=== PATIENT | female | born 2005 | race Caucasian/White ===

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

== ENCOUNTER 2024-02-21 23:35 | Emergency (ER) | payer SELFPAY ==
[2024-02-22 00:16] VITALS: BP 118/65; PULSE 68; RESP 18; TEMP 36.6; O2SAT 99; BMI 21.3
[2024-02-22 00:37] LABS: Basophils Percent Auto 0.6 % (0-2); Eosinophils Absolute Auto 0.1 X10*3/uL (0.0-0.4); Eosinophils Percent Auto 1.9 % (0-4); Hematocrit 38.1 % (37.0-47.0); Hemoglobin 13.2 g/dl (12.0-16.0); Lymphocytes Absolute Auto 3.3 X10*3/uL (1.2-4.9); MANUAL DIFF FLAG NO; Mean Corpuscular HGB Conc 34.6 g/dl (31.0-35.0); Mean Corpuscular Hemoglobin 30.3 pg (27.0-33.0); Mean Corpuscular Volume 87.4 fL (80.0-98.0); Mean Platelet Volume 9.5 fL (9.4-12.3); Monocytes Absolute Auto 0.4 X10*3/uL (0.1-1.2); Monocytes Percent Auto 5.7 % (2-11); Neutrophils Absolute Auto 2.9 x10*3/uL (2.0-8.3); Neutrophils Percent Auto 42.8 % (45-73); Platelet Count 236 X10*3/uL (160-400); Red Blood Count 4.36 X10*6/uL (4.20-5.50); Red Cell Distribution Width 11.7 % (11.0-16.0); White Blood Count 6.7 X10*3/uL (4.8-10.8)
[2024-02-22 00:38] LABS: Appearance Urine Cloudy; Color Urine Yellow
[2024-02-22 00:39] LABS: Glucose Urine UA Negative (Negative); Leukocyte Esterase Urine Trace (Negative); Nitrite Urine Negative (Negative); PH 5.5 (5.0-9.0); Specific Gravity - Urine 1.025 (1.005-1.025); UMIC TRIGGER UACC YES; Urine Blood Negative (Negative); Urine Ketones Negative (Negative); Urine Protein Negative (Neg-Trace)
[2024-02-22 00:50] LABS: Bacteria Urine 3+ (None Seen); Hyaline Casts Urine 0-2 /LPF (0-2); RBC Urine 0-2 /HPF (0-2); Squamous Epithelial Cell Urine >20 /HPF (0-2); UACC Culture Trigger YES
--- OUTSIDE RECORDS SUMMARY | 2024-02-22 00:53 | XMS_ITS | Continuity of Care Document ---
Author Organization [facility] ter Address [address] [place] [id number] Care Team Providers Care Financial Systems Analyst Name Role Phone Lila STEINER, Albert Primary Care Physician [place] [facility] [place] - 09/10/[address] [id number]- Encounter Diagnosis Migraine(Final) - 09/10/21 Discharge Disposition: A-D/C Home Attending Physician: Francisco VANEGAS, Miriam Irwin Admitting Physician: Francisco VANEGAS, Miriam Irwin Referring Physician: Not on Staff, Referring MD Allergies, Adverse Reactions, Alerts Substance Reaction Severity Status NKA Active Medications cyproheptadine 2 mg/5 ml oral syrup See Instructions, 10 mL By Mouth at bedtime, may increase after 1 week to 5 ml in AM- 10 ml in PM if needed, # 450 mL, 5 Refills, Maintenance Start Date: 08/14/11 Status: Ordered ibuprofen 100 mg/5 mL oral suspension 20 mL = 400 mg, By Mouth, Every 6 hours, PRN pain or fever, # 240 mL, 1 Refills, Maintenance, 11/24/17 5:49:55 Start Date: 11/24/17 Status: Ordered ibuprofen 100 mg/5 ml oral suspension See Instructions, 20 mL By Mouth for headache, # 240 mL, 1 Refills, Maintenance Start Date: 08/14/11 Status: Ordered Problem List Condition Effective Dates Status Health Status Inform ant Migraine with aura(Confirmed) Active Vital Signs Most recent to oldest [Reference Range]: 1 2 3 Oxygen Saturation [94-100 %] 100 % (09/10/21 8:03 PM) 100 % (09/10/21 6:45 PM) 100 % (09/10/21 6:05 PM) Pulse Rate [55-90 bpm] 85 bpm (09/10/21 8:03 PM) 73 bpm (09/10/21 6:45 PM) 97 bpm *H* (09/10/21 6:05 PM) Blood Pressure [71-110/30-71 mm Hg] 107/56mm Hg (09/10/21 8:03 PM) 90/45mm Hg (09/10/21 6:45 PM) 96/66mm Hg (09/10/21 6:05 PM) Respiratory Rate [16-30 br/min] 16 br/min (09/10/21 8:03 PM) 16 br/min (09/10/21 6:45 PM) 16 br/min (09/10/21 6:05 PM) Temperature [96.8-100.4 DegF] 98.3 DegF (09/10/21 6:45 PM) 98.1 DegF (09/10/21 5:19 PM) Mode of Delivery (Oxygen) Room air (09/10/21 8:03 PM) Room air (09/10/21 6:45 PM) Room air (09/10/21 6:05 PM) Blood pressure sites Arm, left (09/10/21 6:45 PM) Arm, right (09/10/21 6:05 PM) Temperature Route Oral (09/10/21 6:45 PM) Oral (09/10/21 5:19 PM)
[2024-02-22 00:55] LABS: Alanine Aminotransferase 8 U/L (0-31); Albumin Level 4.5 g/dL (3.5-5.0); Alkaline Phosphatase 70 U/L (39-117); Anion Gap 11 (12-20); Aspartate Amino Transferase 18 U/L (5-31); Bilirubin Total 0.7 mg/dL (0.0-1.0); Blood Urea Nitrogen 9 mg/dL (9-16); Calcium 9.4 mg/dL (8.4-10.2); Carbon Dioxide 26 mmol/L (22-29); Chloride 106 mmol/L (96-108); Creatinine Clr Calc Pharmacy 103.7; Estimated Glomerular Filt Rate > 60; Glucose Random 142 mg/dL (60-115); Potassium 3.5 mmol/L (3.3-5.1); Sodium 139 mmol/L (135-145); Total Protein 7.4 g/dL (6.5-8.0)
--- NOTE | 2024-02-22 01:10 | ED_ITS ---
HPI - Female Genitourinary General Chief complaint: Urogenital-Female Stated complaint: Possible UTI Time Seen by Provider: 02/22/24 00:58 Source: patient Mode of arrival: ambulatory Limitations: no limitations History of Present Illness ED Provider: Abril Cox PA-C HPI Narrative: 18 yo female presents to the ER for evaluation of left flank pain and burning with urination that started a couple of days ago. She states she started having left lower back pain 3 days ago and then 2 days ago started having pain with urination. She reports burning sensation with urination. She denies any blood in her urine. No nausea, vomiting, abdominal pain, fever, chills. She reports the symptoms are similar to when she had a kidney infection in the past, although they are not as severe this time. She denies any vaginal discharge. She has an IUD and denies chance of . She denies concern for STI. MD elicited complaint: dysuria Pertinent past history: IUD Onset (ago): day(s) Location of symptoms: urethra Severity: moderate Female Urogenital Radiation: Non-Radiating Quality of pain: burning Consistency: intermittent Vaginal discharge: none Vaginal bleeding: none Urinary symptoms: Dysuria, Urgency and Frequency Exacerbating factors: urination Relieving factors: none Associated symptoms: back pain Treatment prior to arrival: none Sexual activity: Yes Patient : No Related Data Previous Rx's ?Medication ?Instructions ?Recorded levofloxacin 500 mg tablet 500 mg PO DAILY #9 tabs 08/02/22 ondansetron 4 mg disintegrating 4 mg PO Q8H PRN nausea and 08/02/22 tablet vomiting #20 tabs nitrofurantoin 100 mg PO BID 7 days #14 caps 08/06/22 monohydrate/macrocrystals 100 mg capsule (Macrobid) cefuroxime axetil 250 mg tablet 250 mg PO BID 7 days #14 tabs 02/22/24 Allergies Allergy/AdvReac Type Severity Reaction Status Date / Time No Known Allergies Allergy Verified 02/22/24 00:19 [No Known Allergies*] Review of Systems 2 Review of Systems: Yes all other systems are reviewed and are negative PMFSH Past Medical History Medical History No pertinent past medical history Social History Social History (Updated 08/02/22 @ 07:22 by SALLIE Chiang Alcohol intake: never Patient Tobacco Use Status: Never used Tobacco Substance Use Type: Marijuana Physical Exam 2 Vital Signs: Vital Signs: Last Vital Signs Temp 97.9 F 02/22/24 00:16 Pulse 68 02/22/24 00:16 Resp 18 02/22/24 00:16 BP 118/65 02/22/24 00:16 Pulse Ox 99 02/22/24 00:16 O2 Del Method Room Air 02/22/24 00:16 BMI result Body Mass Index 21.3 Appearance: Alert. Oriented X3. No acute distress. Head: normocephalic, atraumatic. Eyes: Pupils equal, round and reactive to light. ENT: Pharynx normal. No tonsillar swelling or exudate. Neck: Normal inspection. Neck supple. CVS: Normal heart rate and rhythm. Pulses normal. Respiratory: No respiratory distress. Breath sounds normal. Abdomen: Soft and nontender. +BS x4 positive CVA tenderness on the left Skin: Skin warm and dry. Normal skin color. Normal skin turgor. No rashes. Extremities: No lower extremity edema. No joint swelling. Neuro/psych: Oriented X 3. No motor deficit. No sensory deficit. CN II-XII intact. Normal speech and cognition. Medications Administered Discontinued Medications Generic Name Dose Route Start Last Admin Trade Name Freq PRN Reason Stop Dose Admin Cefuroxime Axetil 250 mg 02/22/24 01:21 02/22/24 01:34 Cefuroxime Axetil 250 Mg Tablet PO 02/22/24 01:22 250 mg ONCE ONE Administration Phenazopyridine HCl 100 mg 02/22/24 01:21 02/22/24 01:33 Phenazopyridine Hcl 100 Mg Tablet PO 02/22/24 01:22 100 mg ONCE ONE Administration Medical Decision Making Medical Decision Making [facility] Narrative: 18-year-old female with a history of pyelonephritis presents the ER for evaluation of left lower back pain and dysuria for the last 2 or 3 days. Vital signs are stable on arrival. Labs are unremarkable, normal WBC. Her urinalysis is consistent with urinary tract infection. Will start her on oral antibiotics and discharge home. Stable for discharge. Differential Diagnosis Differential Diagnoses: The differential diagnosis associated with the presentation includes UTI, pyelonephritis, kidney stone, STI Lab Data [facility] Lab Attestation statement: I reviewed the patient's lab results. 02/22/24 00:27 02/22/24 00:27 Labs: Lab Results 02/22/24 Range/Units 00:27 WBC 6.7 (4.8-10.8) X10*3/uL RBC 4.36 (4.20-5.50) X10*6/uL Hgb 13.2 (12.0-16.0) g/dl Hct 38.1 (37.0-47.0) % MCV 87.4 (80.0-98.0) fL MCH 30.3 (27.0-33.0) pg MCHC 34.6 (31.0-35.0) g/dl RDW 11.7 (11.0-16.0) % Plt Count 236 (160-400) X10*3/uL MPV 9.5 (9.4-12.3) fL Immature Gran % (Auto) 0.0 (0.0-0.4) % Neut % (Auto) 42.8 L (45-73) % Lymph % (Auto) 49.0 H (20-40) % [place] % (Auto) 5.7 (2-11) % Eos % (Auto) 1.9 (0-4) % Baso % (Auto) 0.6 (0-2) % Lymph # (Auto) 3.3 (1.2-4.9) X10*3/uL [place] # (Auto) 0.4 (0.1-1.2) X10*3/uL Eos # (Auto) 0.1 (0.0-0.4) X10*3/uL Baso # (Auto) 0.0 (0.0-0.2) X10*3/uL Abs Immat Gran (auto) 0.00 (0.00-0.03) X10*3/uL Absolute Neuts (auto) 2.9 (2.0-8.3) x10*3/uL Absolute Nucleated RBC 0.000 (0.0-0.012) X10*3/uL Nucleated RBC % (auto) 0.0 (0.0-0.2) /100WBC Sodium 139 (135-145) mmol/L Potassium 3.5 (3.3-5.1) mmol/L Chloride 106 (96-108) mmol/L Carbon Dioxide 26 (22-29) mmol/L Anion Gap 11 L (12-20) BUN 9 (9-16) mg/dL Creatinine 0.81 (0.5-1.4) mg/dL Estim Creat Clear Calc 103.7 Estimated GFR > 60 Random Glucose 142 H (60-115) mg/dL Calcium 9.4 (8.4-10.2) mg/dL Total Bilirubin 0.7 (0.0-1.0) mg/dL AST 18 (5-31) U/L ALT 8 (0-31) U/L Alkaline Phosphatase 70 (39-117) U/L Total Protein 7.4 (6.5-8.0) g/dL Albumin 4.5 (3.5-5.0) g/dL Urine Color Yellow Urine Appearance Cloudy Urine pH 5.5 (5.0-9.0) Ur Specific [place] 1.025 (1.005-1.025) Urine Protein Negative (Neg-Trace) mg/dL Urine Glucose (UA) Negative (Negative) mg/dL Urine Ketones Negative (Negative) mg/dL Urine Blood Negative (Negative) Urine Nitrite Negative (Negative) Ur Leukocyte Esterase Trace H (Negative) Urine RBC 0-2 (0-2) /HPF Urine WBC 6-10 H (0-5) /HPF Ur Squamous Epith Cells >20 (0-2) /HPF Urine Bacteria 3+ (None Seen) Hyaline Casts 0-2 (0-2) /LPF Urine Test NEGATIVE (NEGATIVE) External Record Review External record reviewed: Outpatient record, Prior outpatient labs and Prior outpatient radiology Tests considered The following testing was considered but not selected: Considered CT scan of the abdomen and pelvis however low clinical suspicion for kidney stone Prescription Management I considered prescription management with: Pain Medication and Antibiotic Critical Care Time Critical Care Time Critical Care Time: No Discharge Plan Discharge Clinical Impression: Urinary tract infection Patient Disposition: Home, Self-Care Instructions: Urinary Tract Infection in Women (DC) Additional Instructions: Take the prescribed antibiotics as directed, complete the entire course and do not miss any doses Drink plenty of fluids If you develop new or worsening symptoms call 911 or come back to the ER for further evaluation. Prescriptions: New cefuroxime axetil 250 mg tablet 250 mg PO BID 7 Days Qty: 14 0RF No Action ondansetron 4 mg tablet,disintegrating 4 mg PO Q8H PRN (Reason: nausea and vomiting) Qty: 20 0RF levofloxacin 500 mg tablet 500 mg PO DAILY Qty: 9 0RF Rx Instructions: start on night of 08/02 nitrofurantoin monohyd/m-cryst [Macrobid] 100 mg capsule 100 mg PO BID 7 Days Qty: 14 0RF Rx Instructions: must administer with a meal/food Print Language: [place]
[2024-02-22 01:25] LABS: UPreg QC Valid YES; Urine Pregnancy NEGATIVE (NEGATIVE)
[2024-02-22] MEDS: Phenazopyridine HCL 100 MG TABLET PO (01:33)
[2024-02-22] MEDS: cefuroxime axetiL 250 MG TABLET PO (01:34)
[2024-02-22 01:48] VITALS: BP 121/78; PULSE 58; RESP 16; TEMP 36.4; O2SAT 98
[2024-02-22 02:02] VITALS: BP 121/78; PULSE 58; RESP 16; TEMP 36.4; O2SAT 97
== END 2024-02-22 02:03 | disposition home or self-care (01) ==
PROVIDERS: Physician Assistant; Emergency Provider Emergency Medicine
DX: N39.0 Urinary tract infection, site not specified (principal); R10.9 Unspecified abdominal pain; M54.50 Low back pain, unspecified; R30.9 Painful micturition, unspecified
CPT/HCPCS: 36415; 80053; 81001; 81025; 85025; 87086; 99283; 99284

== ENCOUNTER 2024-10-10 21:55 | Emergency (ER) | payer OTHER, SELFPAY ==
[2024-10-10 22:05] VITALS: BP 138/85; PULSE 71; RESP 18; TEMP 36.7; O2SAT 100
[2024-10-10 22:41] LABS: IDNOW Serial# 58CA691E; Strep A Nucleic Acid Negative (Negative)
[2024-10-10 23:06] LABS: Influenza A PCR NEGATIVE (Negative); Influenza B PCR NEGATIVE (Negative); Resp Syncy Virus RNA Qual PCR NEGATIVE (Negative); SARS COV2 PCR INHOUSE NEGATIVE (Negative)
--- NOTE | 2024-10-11 00:16 | ED.URI ---
HPI - URI/Sore Throat General Chief Complaint: Upper Respiratory Symptoms Stated Complaint: sore throat/painful Time Seen by Provider: 10/10/24 23:51 Source: patient Mode of arrival: ambulatory Limitations: no limitations History of Present Illness ED Provider: JOSE ALBERTO BENITEZ Narrative: 19 yo female with no PMH here with 1 week of sore throat that won't go away. No fevers, no n/v but states it is very sharp to swallow. Able to ROM of the neck. Child has RSV she has no cough. She is able to eat and drink MD elicited complaint: sore throat Onset (ago): day(s) (7) Consistency: intermittent Severity: moderate Able to tolerate fluids by mouth: Yes Exacerbating factors: swallowing Relieving factors: nothing Context: sick contacts Associated symptoms: denies other symptoms Treatments prior to arrival: none Related Data Previous Rx's ?Medication ?Instructions ?Recorded levofloxacin 500 mg tablet 500 mg PO DAILY #9 tabs 08/02/22 ondansetron 4 mg disintegrating 4 mg PO Q8H PRN nausea and 08/02/22 tablet vomiting #20 tabs nitrofurantoin 100 mg PO BID 7 days #14 caps 08/06/22 monohydrate/macrocrystals 100 mg capsule (Macrobid) cefuroxime axetil 250 mg tablet 250 mg PO BID 7 days #14 tabs 02/22/24 amoxicillin 250 mg/5 mL oral 500 mg (10 mL) PO BID 10 days #200 10/11/24 suspension mL Allergies Allergy/AdvReac Type Severity Reaction Status Date / Time No Known Allergies Allergy Verified 10/10/24 22:08 [No Known Allergies*] Review of Systems Review of Systems: Constitutional : No Fever, No Chills, No Fatigue ENT/Mouth : pos sore throat, No Rhinorrhea Eyes: No Eye Pain, No Swelling, No Redness Cardiovascular : No Chest Pain, No SOB, No Dyspnea on Exertion Respiratory : No Cough, No Sputum Gastrointestinal : No Nausea, No Vomiting, No Diarrhea, No abdominal Pain Genitourinary : No Dysuria, No Urinary Frequency, No Hematuria, Musculoskeletal : No joint pain, No Myalgias, No Joint Swelling Skin : No Skin Lesions, No rash Neuro : No Weakness, No Numbness, No Dizziness, positive Headache All other systems reviewed and are negative [facility] Past Medical History Attestation statement: The following information was validated with the patient. Source: old records reviewed Medical History No pertinent past medical history Social History Social History Alcohol intake: never Patient Tobacco Use Status: Never used Tobacco Substance Use Type: Marijuana Advance Directives: No Advance Directives Information Provided: Yes Physical Exam Vital Signs: Vital Signs: Last Vital Signs Temp 97.9 F 10/11/24 00:21 Pulse 73 10/11/24 00:21 Resp 18 10/11/24 00:21 BP 98/62 10/11/24 00:21 Pulse Ox 98 10/11/24 00:21 O2 Del Method Room Air 10/11/24 00:21 BMI result Body Mass Index 20.0 Appearance: Alert. Oriented X3. No acute distress. Eyes: Pupils equal, round and reactive to light. ENT: Pharynx uvula is red and inflammed small clear very trace sac along bottom portion tonsils normal no exudates, no petechia, normal ROM of neck, no airway issues, drooling, no muffled voice Neck: Normal inspection. Neck supple. CVS: Normal heart rate and rhythm. Pulses normal. Respiratory: No respiratory distress. Breath sounds normal. Abdomen: Soft and nontender. Skin: Skin warm and dry. Normal skin color. Normal skin turgor. Extremities: No lower extremity edema. No calf ttp Neuro: Oriented X 3. No motor deficit. No sensory deficit. CN2-12 intact Medications Administered Discontinued Medications Generic Name Dose Route Start Last Admin Trade Name Azeb PRN Reason Stop Dose Admin Amoxicillin 500 mg 10/11/24 00:16 10/11/24 00:30 Amoxicillin 500 Mg Capsule PO 10/11/24 00:17 500 mg ONCE ONE Administration Dexamethasone Sodium Phosphate 10 mg 10/11/24 00:16 10/11/24 00:30 Dexamethasone Sod Phosphate 10 Mg/Ml Vial PO 10/11/24 00:17 10 mg ONCE ONE Administration Medical Decision Making Medical Decision Making [facility] Narrative: 19 yo female with no sig PMH here with sore throat x 1 week at this time her uvula is inflammed and she likely has uvulitis - no airway issues no signs of abscess normal ROM of neck will dose with steroids and start on amoxicillin. Stable for DC home Differential Diagnosis Differential Diagnoses: The differential diagnosis associated with the presentation includes viral syndrome, strep throat, no systemic symptoms to suggest mono no airway issues, no voice changes or drooling doubt KINDERGARTEN TEACHER or abscess Admission/Observation Consideration of admission/observation: Escalation of care including admission/observation considered can be managed as outpatient Lab Data MDM Lab Attestation statement: I reviewed the patient's lab results. Labs: Lab Results 10/10/24 Range/Units 22:27 Influenza Type A (PCR) NEGATIVE (Negative) Influenza Type B (PCR) NEGATIVE (Negative) RSV RNA Qual (PCR) NEGATIVE (Negative) SARS-CoV-2 RNA (RT-PCR) NEGATIVE (Negative) S. pyogenes GrpA AJ Negative (Negative) Independent Historian Clinical information obtained from an independent historian. History obtained from or confirmed by: Other External Record Review External record reviewed: Outpatient record Prescription Management I considered prescription management with: Antibiotic Discharge Plan Discharge Clinical Impression: Uvulitis Patient Disposition: Home, Self-Care Instructions: Uvulitis (ED) Additional Instructions: negative for covid, flu, rsv negative for strep return for worsening symptoms or concerns stay hydrated steroid will last 3 to 5 days take tylenol or motrin for pain Prescriptions: New amoxicillin 250 mg/5 mL suspension for reconstitution 500 mg PO BID 10 Days Qty: 200 0RF No Action ondansetron 4 mg tablet,disintegrating 4 mg PO Q8H PRN (Reason: nausea and vomiting) Qty: 20 0RF levofloxacin 500 mg tablet 500 mg PO DAILY Qty: 9 0RF Rx Instructions: start on night of 11/2 nitrofurantoin monohyd/m-cryst [Macrobid] 100 mg capsule 100 mg PO BID 7 Days Qty: 14 0RF Rx Instructions: must administer with a meal/food cefuroxime axetil 250 mg tablet 250 mg PO BID 7 Days Qty: 14 0RF Print Language: Cambodian
[2024-10-11 00:21] VITALS: BP 98/62; PULSE 73; RESP 18; TEMP 36.6; O2SAT 98
[2024-10-11] MEDS: dexAMETHasone sod phosphate 10 MG/ML VIAL PO (00:30)
[2024-10-11] MEDS: Amoxicillin Oral Susp 4,000 MG/80 ML BOTTLE 500 MG PO (00:40)
[2024-10-11 00:45] VITALS: BP 98/62; PULSE 73; RESP 18; TEMP 36.6; O2SAT 98
== END 2024-10-11 00:46 | disposition home or self-care (01) ==
PROVIDERS: Emergency Provider Emergency Medicine
DX: K12.2 Cellulitis and abscess of mouth (principal); J02.9 Acute pharyngitis, unspecified; Z03.818 Encounter for observation for suspected exposure to other biological agents ruled out
CPT/HCPCS: 0241U; 87651; 99283; J1100

== ENCOUNTER 2025-01-23 10:53 | Outpatient (REF) | payer OTHER, SELFPAY ==
--- OUTSIDE RECORDS SUMMARY | 2025-01-23 11:43 | XMS_ITS | Encounter Summary ---
Author Organization [employer] Address [address] [place] [address] Care Team Providers Care City Recorder Name Role Phone Tang Rich DMD Unavailable [phone] Reason for Visit * Reason Onset Date Comments Chart prep 01/20/2025 Encounter Details Date Type Department Care Team (Late st Contact Info) Description 01/20/2025 Telephone [facility] [address] [place], [place] [phone] Luz Adame MA Chart prep Social History Tobacco Use Types Packs/Day Years Used Date Smoking Tobacco: Never Smokeless Tobacco: Never Housing Stability Answer Date Recorded What is your housing situation today? I have erum will 01/14/[address] you li ve. Do you have problems with any of the following? None of the above 01/14/2025 Food Insecurity Answer Date Recorded Within the past 12 months, y ou worried that your food would run out before you got money to buy more: Never True 01/14/2025 Within the past 12 months,th e food you bought just didn't last and you didn't have enough money to get more: Never True Transportation Answer Date Recorded In the past 12 months, has l ack of transportation kept you from medical appts, meetings, work or from getting things needed for daily living? No 01/14/2025 Utilities Answer Date Recorded In the past 12 months, has t he electric, gas, oil or water company threatened to shut off services in your home? No 01/14/2025 Internet Access Answer Date Recorded Internet Access Q1 Yes 01/14/2025 Internet Access Q2 Not on file 01/14/2025 Comments Unknown Sex and Gender Information Value Date Recorded Sex Assigned at Female 07/03/2024 8:09 AM EDT Legal Sex Female 3:22 PM EDT Gender Identity Female 07/03/2024 8:09 AM EDT Sexual Orientation Choose not to disclose 2023 8:09 AM EDT documented as of this encounter Miscellaneous Notes * Telephone Encounter - Luz Adame MA - 01/20/2025 10:40 AM EDT Chart Prep Labs: done Images: not applicable Referrals: not applicable Vaccines due: yes Screenings: pap smear and STI screening Overdue care gaps: PHQ-9 documented in this encounter Plan of Treatment Upcoming Encounters Date Type Department Care Team (Late st Contact Info) Description 01/26/2025 2:30 PM EDT Office Visit [facility] [address] [place] [address] Paola Espino DMD 01/28/2025 3:00 PM EDT Office Visit [facility] [address] [place] [address] Nelly Godoy 03/09/2025 11:30 AM EDT Telemedicine [facility] MEDICINE [address] [place] [address] Alexandria Shirley MD [address] [place] [address] documented as of this encounter Visit Diagnoses Not on filedocumented in this encounter Care Teams City Recorder Relationship Specialty Start Date End Date Tang Rich DMD [address] [place] [address] Dentist 09/05/24 documented as of this encounter
--- OUTSIDE RECORDS SUMMARY | 2025-01-23 11:43 | XMS_ITS ---
Author Organization [facility] Address [address] [place] [id number] Care Team Providers Care Well Servicing Rig Operator Name Role Phone NALLELY YUNG Unavailable [phone] REASON FOR VISIT pap fu Social History Sex Assigned At : Social History Observation Description Sex Assigned At Female Encounters Encounter Location Date Provider Diagnosis [address] [phone] 07/15/2024 NALLELY YUNG Plan Of Treatment No Information Progress Notes * Kory MUHAMMADDOB:[birth year] (19 yo F)Acc No.[id number]:07/15/2024 Patient:?Karrie MUHAMMADapolinar :2005???Age:19 Y???Sex:Female Address:[address] [place] [address], [id number] Subjective: * Chief Complaints: * ???Pap fu * Medical History:? * Laminating Machine Feeder History:? control:?Liletta intrauterine device, Nexplanon 2018 (increased bleeding).?Last menstrual period:?06/14/2024.?Last pap smear date:?07/04/2024 LSIL, repeat in 1 yr.?Menarche: ?Age of menarche?9 ???Periods:?irregular, scant blood loss.?Sexual activity:?currently sexually active, with men.?Unprotected sex in the last 5 days?:?yes.?Unprotected sex in the past 10 days?:?yes.? * OB History:?Total pregnancies:?0.? * Surgical History:? * Hospitalization/Major Diagno stic Procedure:? * Family History:? Mom with cervical CA. * Medications:? Objective: * Vitals:? * Physical Examination:? Assessment: Plan: * Treatment: * Procedure Codes:? * true * Date:? Generated for Karine newberry/Maddison/eTransmitting on:?01/23/2025 11:43 AM EDT
--- OUTSIDE RECORDS SUMMARY | 2025-01-23 11:43 | XMS_ITS | Encounter Summary ---
Author Organization [employer] Address [address] [place] [address] Care Team Providers Care Sport Shoe Spike Assembler Name Role Phone Tang Rich DMD Unavailable [phone] Encounter Details Date Type Department Care Team (Latest Contact Info) Description 01/23/2025 Travel Social History Tobacco Use Types Packs/Day Years Used Date Smoking Tobacco: Never Smokeless Tobacco: Never Alcohol Use Standard Drinks/Week Comments Not Currently 0 (1 standard drink = 0.6 oz pur e alcohol) Socially 1-2x/y Housing Stability Answer Date Recorded What is [...] t he electric, gas, oil or water [employer] threatened to shut off services in your home? No 01/14/2025 Internet Access Answer Date Recorded Internet Access Q1 Yes 01/14/2025 Internet Access Q2 Not on file 01/14/2025 Comments No Sex and Gender Information Value Date Recorded Sex Assigned at Female 07/03/2024 8:09 AM EDT Legal Sex Female 3:22 PM EDT Gender Identity Female 07/03/2024 8:09 AM EDT Sexual Orientation Choose not to disclose 2023 8:09 AM EDT documented as of this encounter Plan of Treatment Upcoming Encounters Date Type Department Care Team (Late st Contact Info) Description 01/26/2025 2:30 PM EDT Office Visit [facility] [address] [place] [address] Paola Espino DMD 01/28/2025 3:00 PM EDT Office Visit [facility] [address] [place], [place] [phone] Nelly Godoy 03/09/2025 11:30 AM EDT Telemedicine [facility] MED[facility]INE [address] [place], [place] [phone] Alexandria Shirley MD [address] [place] [address] documented as of this encounter Visit Diagnoses Not on filedocumented in this encounter Care Teams Sport Shoe Spike Assembler Relationship Specialty Start Date End Date Tang Rich DMD [address] [place] [address] Dentist 09/05/24 documented as of this encounter
--- OUTSIDE RECORDS SUMMARY | 2025-01-23 11:43 | XMS_ITS | Encounter Summary ---
Author Organization [facility] Address [address] [place] [address] Phone Care Team Providers Care Senior Client Advisor Name Role Phone Neelam Guaman MD Primary Care Provider [phone] Encounter Details Date Type Department Care Team (Late st Contact Info) Description 07/01/2013 Documentation [facility] Family Medicine [address] [place], [place] [phone] Family Medicine, Physician [address] [place], [place] [phone] Social History Tobacco Use Types Packs/Day Years Used Date Smoking Tobacco: Never Assessed Comments Unknown Sex and Gender Information Value Date Recorded Sex Assigned at Not on file Legal Sex Female 5:23 PM EDT Gender Identity Not on file Sexual Orientation Straight 02/16/2021 12 :51 PM EDT documented as of this encounter Plan of Treatment Not on file documented as of this encounter Visit Diagnoses Not on filedocumented in this encounter Care Teams Senior Client Advisor Relationship Specialty Start Date End Date Neelam Guaman MD [address] [place] [address] [place] [address] PCP - General 05/11/17 04/08/24 documented as of this encounter
--- OUTSIDE RECORDS SUMMARY | 2025-01-23 11:43 | XMS_ITS | Patient Health Record ---
Author Organization [facility] Address [address] [place] [phone] Care Team Providers Care Auto Fleet Maintenance Manager Name Role Phone NALLELY YUNG Unavailable [phone] Allergies No Known Allergies Results Component Value Reference Range Notes THINPREP PAP TEST, Cervix Reviewed date:07/16/2024 04:12:17 PM Interpretation:LSIL Performing Lab:[facility], [facility] [employer], [place], [address] Simón Hoffmann DO Notes/Report: THINPREP PAP TEST LSIL NEGATIVE -- THIN PREP PAP TEST -- SEX: F : 2005 AGE: 19 [id number] CLINIC ID: [id number] SS: PHYSICIAN: NALLELY YUNG CNM COLLECTED BY: ____ Low Grade Squamous Intraepithelial Lesion (LSIL) ____ Additional Findings: Endocervical Material Present Specimen Adequacy: Satisfactory for Evaluation Clinical Note: Z12.4 Encounter for screening for malignant neoplasm of ezlmteS25.3 Encounter for screening for infections with a predominantly sexual mode of transmission, LMP 2023 Specimen Source: Cervix Visit Type: Screening Primary screening performed at [facility], [facility] [address], Justin Coronel DO, Equestrian Trainer. CLIA number [id number] Performed by: PARIS Li (ASCP) Reviewed by: Bertin Hoffmann DO (Electronic Signature 07/14/2024 14:17) APTIMA COMBO 2 CT/NG, Cervix Reviewed date:07/15/2024 11:16:09 AM Interpretation:Negative Performing Lab:[facility], [address] [place], [address] Simón Hoffmann DO Notes/Report: GONORRHEA, AMPLIFIED NEGATIVE NEGATIVE CHLAMYDIA, AMPLIFIED NEGATIVE NEGATIVE DNA Test Results SEX: F : 2005 AGE: 19 [id number] CLINIC ID: [id number] SS: PHYSICIAN: NALLELY YUNG CNM COLLECTED BY: [id number] ____ Specimen Source: Cervix Specimen Type: ThinPrep PAP Correlating Pap: [id number] Neisseria gonorrhoeae: NEGATIVE Normal Value: Negative Chlamydia trachomatis: NEGATIVE Normal Value: Negative Reason For Referral No Information Medications Medication SIG (Take, Route, Frequency, Duration) Notes Start Date End Date Status Liletta (52 MG) 18.6 MCG/DAY as directed Intrauterine stat for 2190 days 07/05/2020 Active Levonorgestrel 1.5 MG as directed Orally May take upto 5 days after sex as needed for 1 days 07/04/2024 Active [place] FE 10/20 1-20 MG-MCG 1 tablet Oral ly Once a day for 28 days 07/04/2024 Active Social History Sex Assigned At : Social History Observation Description Sex Assigned At Female Problems Problem Type SNOMED Code ICD Code Onset Dates Problem Status W/U Status Risk Notes Problem Menstrual disorder (781581411) Irregular menses (N92.6) Active confirmed Vital Signs Blood pressure diastolic 82 mm Hg 07/04/2024 Height 67 in 07/04/2024 Blood pressure systolic 108 mm Hg 07/04/2024 Weight 128.9 lbs 07/04/2024 BMI 20.19 kg/m2 07/04/2024 Encounters Encounter Location Date Provider Diagnosis [facility] [address] [place], [place] [phone] 07/04/2024 NALLELY YUNG Encounter for annemarie faizan of intrauterine contraceptive device Z30.432 ; Routine Pap Screening Z12.4 ; Encounter for screening for infections with a predominantly sexual mode of transmission Z11.3 ; Other problems related to lifestyle Z72.89 and Visit for initial script of pills Z30.[address] [id number] 07/15/2024 NALLELY YUNG Assessments Encounter Date Diagnosis (ICD Code) Assessment Notes Treatment Notes Treatment Clinical Notes Section Notes 07/04/2024 Encounter for removal of intrauterine contraceptive device (ICD-10 - Z30.432) Reviewed clt's experience with current IUD. Reviewed option for u/s evaluation- question if mildly malpositioned given change in symptoms. Clt prefers removal today. No CI s to removal. Clt aware of risk for pregrancy with UPI in the last 5 days. Will take plan B to lower risk. Advised to take today. Medication dispensed from in house stock. Consent reviewed and signed. Clt with some cramping with removal but tolerated well. Declined NSAID or vibration at umbilicus for pain managment options. Spent 30 minutes doing the following: Chart Prep Obtaining/revi thomas history Performing medically necessary exam Counseling/Research Dairy Farm Supervisor rdination of Care Documenting the visit Educating the patient Ordering medication/javier t/procedures Established Patient: [id number] 30 Minutes 07/04/2024 Routine Pap Screening (ICD-10 - Z12.4) For first pap today. Rescreening in 3years if normal Spent 30 minutes doing the following: Chart Prep Obtaining/revi thomas history Performing medically necessary exam Counseling/Research Dairy Farm Supervisor rdination of Care Documenting the visit Educating the patient Ordering medication/javier t/procedures Established Patient: [id number] 30 Minutes 07/04/2024 Encounter for screening for infections with a predominantly sexual mode of transmission (ICD-10 - Z11.3) Discussed STI risks, screenings that are available through [employer] and safe sex. Clt aware of lab processing times and how to view results on portal and how positive results will be communicated Spent 30 minutes doing the following: Chart Prep Obtaining/revi thomas history Performing medically necessary exam Counseling/Research Dairy Farm Supervisor rdination of Care Documenting the visit Educating the patient Ordering medication/javier t/procedures Established Patient: [id number] 30 Minutes 07/04/2024 Other problems related to lifestyle (ICD-10 - Z72.89) Spent 30 minutes doing the following: Chart Prep Obtaining/revi thomas history Performing medically necessary exam Counseling/Research Dairy Farm Supervisor rdination of Care Documenting the visit Educating the patient Ordering medication/javier t/procedures Established Patient: [id number] 30 Minutes 07/04/2024 Visit for initial script of pills (ICD-10 - Z30.011) Discussed control options. No CI's to CHCs. Reviewed benefits, risks and ACHES. Clt to notify if migraines worsened by OCP's. May quick start with BUM x 7 days Medication dispensed from in house stock: lot number [id number], exp 2024 x 3 packs. 1 refill left Spent 30 minutes doing the following: Chart Prep Obtaining/revi thomas history Performing medically necessary exam Counseling/Research Dairy Farm Supervisor rdination of Care Documenting the visit Educating the patient Ordering medication/javier t/procedures Established Patient: [id number] 30 Minutes 07/04/2024 Other Spent 30 minutes doing the following: Chart Prep Obtaining/revi thomas history Performing medically necessary exam Counseling/Research Dairy Farm Supervisor rdination of Care Documenting the visit Educating the patient Ordering medication/javier t/procedures Established Patient: [id number] 30 Minutes Plan Of Treatment No Information Insurance Providers Payer Name Payer Address Payer Phone Subscriber Number Group Number Insured Name Patient Relationship to Insured Coverage Start Date Coverage End Date [facility] - [id number] [address] [place] [id number] [place] fee cat 2 Kory Huntley Self - patient is the insured Medical (General) History Medical History History ICD Code Migraines no aura Hospitalization History Reason Date(Month/Year) migraines
--- OUTSIDE RECORDS SUMMARY | 2025-01-23 11:43 | XMS_ITS | Encounter Summary ---
Author Organization [employer] Address [address] [place] [address] Care Team Providers Care Skylights Assembler Name Role Phone Tang Rich DMD Unavailable [phone] Reason for Visit * Reason Onset Date Comments emergency no insurance 12/09/2024 Encounter Details Date Type Department Care Team (Late st Contact Info) Description 12/09/2024 Telephone [facility] [address] [place] [address] Yuriy Barrientos DDS [address] [place], [place] [phone] emergency no insurance Social History Tobacco Use Types Packs/Day Years Used Date Smoking Tobacco: Never Smokeless Tobacco: Never Comments Unknown Sex and Gender Information Value Date Recorded Sex Assigned at Female 07/03/2024 8:09 AM EDT Legal Sex Female 3:22 PM EDT Gender Identity Female 07/03/2024 8:09 AM EDT Sexual Orientation Choose not to disclose 2023 8:09 AM EDT documented as of this encounter Miscellaneous Notes * Telephone Encounter - Jeanine Medrano - 12/09/2024 9:25 AM EDT Patient has been instructed to come in to see insurance on 2nd or 3rd floor and told to be here at the least for 1pm to allow time for assistance. Informed to bring pay stubs or award letter of income and id and after speaking with managed care she can then go to her emergency appt documented in this encounter Plan of Treatment Upcoming Encounters Date Type Department Care Team (Late st Contact Info) Description 01/26/2025 2:30 PM EDT Office Visit [facility] [address] [facility] [place] [address] Paola Espino DMD 01/28/2025 3:00 PM EDT Office Visit [facility] [address] [place] [address] Nelly Godoy 03/09/2025 11:30 AM EDT Telemedicine [facility] MEDICINE [address] [place] [address] Alexandria Shirley MD [address] [place], [place] [phone] documented as of this encounter Visit Diagnoses Not on filedocumented in this encounter Care Teams Skylights Assembler Relationship Specialty Start Date End Date Tang Rich DMD [address] [place] [address] Dentist 09/05/24 documented as of this encounter
--- OUTSIDE RECORDS SUMMARY | 2025-01-23 11:43 | XMS_ITS | Encounter Summary ---
Author Organization [employer] Address [address] [facility] [address] [place] [address] Care Team Providers Care Recharger Name Role Phone Tang Rich DMD Unavailable [phone] Reason for Visit * Reason Onset Date Comments unable to post insurance PAR side 12/11/2024 Encounter Details Date Type Department Care Team (Late st Contact Info) Description 12/11/2024 Telephone [facility] [address] [place] [address] HilarioTang DMD [address] [place], [place] [phone] unable to post insurance PAR side Social History Tobacco Use Types Packs/Day Years [...] * Telephone Encounter - Jeanine Medrano - 12/11/2024 8:50 AM EDT Patient is coming in for 11:30 emergency appt. Unable to post insurance portal not running on PAR side DR documented in this encounter Plan of Treatment Upcoming Encounters Date Type Department Care Team (Late st Contact Info) Description 01/26/2025 2:30 PM EDT Office Visit [facility] [address] [place] [address] Paola Espino DMD 01/28/2025 3:00 PM EDT Office Visit [facility] [address] [place] [address] Nelly Godoy 03/09/2025 11:30 AM EDT Telemedicine [facility] [address], [place] [phone] Alexandria Shirley MD [address] [place] [address] documented as of this encounter Visit Diagnoses Not on filedocumented in this encounter Care Teams Recharger Relationship Specialty Start Date End Date Tang Rich DMD [address] [place] [address] Dentist 09/05/24 documented as of this encounter
--- OUTSIDE RECORDS SUMMARY | 2025-01-23 11:43 | XMS_ITS ---
Author Organization [employer] [facility] Address [address] [place] [id number] Care Team Providers Care Sprinkler Fitter Helper Name Role Phone NALLELY YUNG Unavailable [phone] Allergies No Known Allergies Results Component Value Reference Range Notes THINPREP PAP TEST, Cervix Reviewed date:07/16/2024 04:12:17 PM Interpretation:LSIL Performing Lab:[facility], [address], [place], [address] Simón Hoffmann DO Notes/Report: THINPREP PAP TEST LSIL NEGATIVE -- THIN PREP PAP TEST -- SEX: F : 2005 AGE: 19 [id number] CLINIC ID: [id number] SS: PHYSICIAN: NALLELY YUNG CNM COLLECTED BY: ____ Low Grade Squamous Intraepithelial Lesion (LSIL) ____ Additional Findings: Endocervical Material Present Specimen Adequacy: Satisfactory for Evaluation Clinical Note: Z12.4 Encounter for screening for malignant neoplasm of vniosuR38.3 Encounter for screening for infections with a predominantly sexual mode of transmission, LMP 2023 Specimen Source: Cervix Visit Type: Screening Primary screening performed at [facility] [address] [address], Justin Coronel DO, Rn Family Practice. CLIA number [id number] Performed by: PARIS Li (ASCP) Reviewed by: Bertin Hoffmann DO (Electronic Signature 07/14/2024 14:17) APTIMA COMBO 2 CT/NG, Cervix Reviewed date:07/15/2024 11:16:09 AM Interpretation:Negative Performing Lab:[facility], [address] [place], [address] Simón Hoffmann DO Notes/Report: GONORRHEA, AMPLIFIED NEGATIVE NEGATIVE CHLAMYDIA, AMPLIFIED NEGATIVE NEGATIVE DNA Test Results SEX: F : 2005 AGE: 19 [id number] CLINIC ID: [id number] SS: PHYSICIAN: NALLELY YUNG CNM COLLECTED BY: [id number] ____ Specimen Source: Cervix Specimen Type: ThinPrep PAP Correlating Pap: [id number] Neisseria gonorrhoeae: NEGATIVE Normal Value: Negative Chlamydia trachomatis: NEGATIVE Normal Value: Negative REASON FOR VISIT IUD Out, pap only Medications Medication SIG (Take, Route, Frequency, Duration) Notes Start Date End Date Status Liletta (52 MG) 18.6 MCG/DAY as directed Intrauterine stat for 2190 days 07/05/2020 Active Levonorgestrel 1.5 MG as directed Orally May take upto 5 days after sex as needed for 1 days 07/04/2024 Active [place] FE 10/20 1-20 MG-MCG 1 tablet Oral ly Once a day for 28 days 07/04/2024 Active Social History Sex Assigned At : Social History Observation Description Sex Assigned At Female Vital Signs Blood pressure systolic 108 mm Hg 07/04/20 24 Blood pressure diastolic 82 mm Hg 024 Height 67 in 07/04/2024 Weight 128.9 lbs 07/04/2024 BMI 20.19 kg/m2 07/04/2024 Encounters Encounter Location Date Provider Diagnosis [facility] [address] [place], [place] [phone] 07/04/2024 NALLELY AGA Encounter for annemarie faizan of intrauterine contraceptive device Z30.432 ; Routine Pap Screening Z12.4 ; Encounter for screening for infections with a predominantly sexual mode of transmission Z11.3 ; Other problems related to lifestyle Z72.89 and Visit for initial script of pills Z30.011 Assessments Encounter Date Diagnosis (ICD Code) Assessment [...] Obtaining/revi thomas history Performing medically necessary exam Counseling/Acoustical Material Worker rdination of Care Documenting the visit Educating the patient Ordering medication/javier t/procedures Established Patient: 96650 30 Minutes 07/04/2024 Routine Pap Screening (ICD-10 - Z12.4) For first pap today. Rescreening in 3years if normal Spent 30 minutes doing the following: Chart Prep Obtaining/revi thomas history Performing medically necessary exam Counseling/Acoustical Material Worker rdination of Care Documenting the visit Educating the patient Ordering medication/javier t/procedures Established Patient: 02406 30 Minutes 07/04/2024 Encounter for screening for [...] Obtaining/revi thomas history Performing medically necessary exam Counseling/Acoustical Material Worker rdination of Care Documenting the visit Educating the patient Ordering medication/javier t/procedures Established Patient: 74868 30 Minutes 07/04/2024 Other problems related to lifestyle (ICD-10 - Z72.89) Spent 30 minutes doing the following: Chart Prep Obtaining/revi thomas history Performing medically necessary exam Counseling/Acoustical Material Worker rdination of Care Documenting the visit Educating the patient Ordering medication/javier t/procedures Established Patient: 48173 30 Minutes 07/04/2024 Visit for initial script of pills (ICD-10 - Z30.011) Discussed control options. No CI's to CHCs. Reviewed benefits, risks and ACHES. Clt to notify if migraines worsened by OCP's. May quick start with BUM x 7 days Medication dispensed from in house stock: lot number [id number], exp 2024 x 3 packs. 1 refill left Spent 30 minutes doing the following: Chart Prep Obtaining/revi thomas history Performing medically necessary exam Counseling/Acoustical Material Worker rdination of Care Documenting the visit Educating the patient Ordering medication/javier t/procedures Established Patient: 74344 30 Minutes 07/04/2024 Other Spent 30 minutes doing the following: Chart Prep Obtaining/revi thomas history Performing medically necessary exam Counseling/Acoustical Material Worker rdination of Care Documenting the visit Educating the patient Ordering medication/javier t/procedures Established Patient: 42568 30 Minutes Plan Of Treatment Medication Medication Name Sig Start Date Stop Date Notes Levonorgestrel 1.5 MG as directed Orally May take upto 5 days after sex as needed for 1 days 07/04/2024 [place] FE 10/20 1-20 MG-MCG 1 tablet Oral ly Once a day for 28 days 07/04/2024 Treatment Notes Assessment Notes Encounter for removal of int rauterine contraceptive device Reviewed clt's experience with current IUD. Reviewed [...] vibration at umbilicus for pain managment options. Routine Pap Screening For first pap toda y. Rescreening in 3years if normal Encounter for screening for infections with a predominantly sexual mode of transmission Discussed STI risks, screenings that are available through [facility] and safe sex. Clt aware of lab processing times and how to view results on portal and how positive results will be communicated Visit for initial script of pills Discussed control options. No CI's to CHCs. Reviewed benefits, risks and ACHES. Clt to notify if migraines worsened by OCP's. May quick start with BUM x 7 days Medication dispensed from in house stock: lot number [id number], exp 2024 x 3 packs. 1 refill left Next Appt Details Follow Up: 3 Months, Reason: pill check Procedure Notes * Category Sub-Category Detail Notes IUD Removal Consent Risks and benefi ts discussed. All questions answered. Informed consent signed Procedure Patient was placed i n the dorsal lithotomy position. A speculum was inserted into the vagina. IUD strings grasped with ring forceps and IUD removed easily. The patient tolerated the procedure well. Progress Notes * Kory MUHAMMADDOB:[birth year] (19 yo F)Acc No.[id number]:07/04/2024 Progress Note Patient:?Latosha MUHAMMADmckayla Provider:MARI YUNG :2005???Age:19 Y???Sex:Female D ate:07/04/2024 Address:[address] [place], [place] [id number] Subjective: * Chief Complaints: * ???IUD Out, pap only * HPI: ???Visit Narrative:? Liletta IUD since 2019. Last few years with cramping, BTB and painful sex. Clt notes first year of IUD was fine. Had IUD check in 2022 and was advised u/s for fu- clt had work conflicts with appointment so never had it done. Would like removal today and OCP start. Been on OCP's as adolescent. Has not had pap yet. ?Current form of control:?Liletta.?Presenting Symptoms:?cramping, painful IC, breakthrough bleeding.?LMP:?unsure, occasional spotting.?Last date of UPI:?07/02/2024.?Other Notes for the Clinician:?Clt states she experiences?pain?during penetrative IC w/ the IUD as well as random cramping not related to menses. Client did not take pain medication for removal, offered clt medication and she declined.? * ROS:?General/Constitutional:?Comments?See HPI for details.? * Medical History:? * Servomechanism Designer History:? control:?Liletta intrauterine device, Nexplanon 2018 (increased bleeding).?Last menstrual period:?06/14/2024.?Last pap smear date:?07/04/2024 pap collected.?Menarche: ?Age of menarche?9 ???Periods:?irregular, scant blood loss.?Sexual activity:?currently sexually active, with men.?Unprotected sex in the last 5 days?:?yes.?Unprotected sex in the past 10 days?:?yes.? * OB History:?Total pregnancies:?0.? * Surgical History:?No Surgica l History documented. * Hospitalization/Major Diagno stic Procedure:?migraines * Family History:?No Family Hi story documented..? * Social History:?Food Access:?Food Access?The Client's current access to food is?Secure Food Access ???Housing:?Housing?The client's current living situation is:?stable housing ???Reproductive Life Plan:?Reproductive Life Plan?Do you want to have children??Yes, I want to have children ?How long would you like to wait until you/your partner becomes ??1 - 5 years ?How sure are you that you will be able to use your control method without any problems??Sure ???Sexual History:?Sexual History?Sexual History Reviewed:?Partners, Practices, Protection/Past STIs, Prevention of ?Currently sexually active??Yes ?Sexually active with:?Men ?Number of male partners?1 ?Your sexual activities include:?oral intercourse, vaginal intercourse ?Reviewed types of EC??No ?Do you use condoms??No ?Date of last unprotected intercourse:?07/02/2024 ?Number of partners in past 3 months:?1 ?Number of partners in past year:?1 ?What is the client's primary method to prevent at the end of their visit??Oral - Combined Hormone Pill ?Does your partner(s) currently have any STIs??No ???HIV Risk Assessment:?Additional Questions?Is an HIV Risk Assessment being conducted??No ???PrEP for HIV:?PrEP for HIV?Is the client interested in beginning/continuing PrEP for HIV??No ???Relationships:?Relationships?Has the client experienced any of the following:?Client has never experienced harmful relationships ???Human Trafficking:?Human Trafficking?Experienced:?No ???Tobacco Use:?Tobacco Use?Do you/have you used tobacco??Yes, currently tobacco leaf w/ marijuana ?Tobacco Smoking Status?Current some day smoker ???Drugs/Alcohol:?Drug/Alcohol Use?Do you or have you used drugs??Yes, currently ?By what route are you taking drugs? Please check all that apply:?Smoking ?Which drug(s) do you smoke??Marijuana ?When did you last use?Do you want to quit drugs??No ?Do you or have you used alcohol??No ???Counseling Provided:?Counseling Provided?Please indicate the length of time, in minutes, that counseling was provided.?6 ?Counseling Was Provided By:?kristopher * Medications:?TakingLiletta ( 52 MG) 18.6 MCG/DAY Intrauterine Device as directed Intrauterine stat Taking Liletta (52 MG) 18.6 MCG/DAY Intrauterine Device as directed Intrauterine stat DiscontinuedPlan B One-Step 1.5 MG Tablet 1 tablet Orally At once Plan B One-Step 1.5 MG Tablet 1 tablet Orally At once Tri-Previfem 0.18/0.215/0.25 MG-35 MCG Tablet 1 tablet Orally Once a day Medication List reviewed and reconciled with the patientDiscontinued Plan B One-Step 1.5 MG Tablet 1 tablet Orally At once Discontinued Plan B One-Step 1.5 MG Tablet 1 tablet Orally At once Discontinued Tri-Previfem 0.18/0.215/0.25 MG-35 MCG Tablet 1 tablet Orally Once a day Medication List reviewed and reconciled with the patient * Allergies:?N.K.D.A.no[Allerg ies Verified] Objective: * Vitals:?BP:108/82mm Hg, Ht: 67 in, Wt:128.9lbs, BMI:20.19Index, Ht-cm: 170.18, Wt-k.47. * Examination: ???General Examination: ?GENERAL APPEARANCE:?in no acute distress.?NEUROLOGIC:?alert and oriented.?Gynecological: ?EXTERNAL GENITALIA:?normal.?URETHRAL MEATUS:? normal.?URETHRA:? normal.?VAGINA:? healthy pink mucosa without any lesions.?VAGINA VAULT:? normal.?CERVIX:?normal appearance, IUD strings seen about 3cm long, Pap collected.?ANUS/PERINEUM:? normal.? Assessment: * Assessment: 1.?Encounter for removal of intrauterine contraceptive device - Z30.432 (Primary)???2.?Routine Pap Screening - Z12.4???3.?Encounter for screening for infections with a predominantly sexual mode of transmission - Z11.3???4.?Other problems related to lifestyle - Z72.89???5.?Visit for initial script of pills - Z30.011??? Spent 30 minutes doing the f ollowing: Chart Prep Obtaining/reviewing history Performing medically necessary exam Counseling/Coordination of Care Documenting the visit Educating the patient Ordering medication/test/procedures Established Patient: 69815 30 Minutes Plan: * Treatment: 2.?Routine Pap Screening?LAB: THINPREP PAP TEST, Cervix (Collection Date & Time - 07/04/2024 11:43 AM) ? Value Reference Range ?THINPREP PAP TEST LSIL A NEGAT CHU - * NALLELY YUNG 07/15/2024 11:13: 21 AM EDT > your pap is showing some low grade cell changes that will usually return to normal with time. I recommend a followup pap in 1 year to monitor. I will call you to discuss results.This lab was reviewed by NALLELY YUNG on 07/16/2024 at 16:12 PM EDT ?LAB: APTIMA COMBO 2 CT/NG, Cervix (Collection Date & Time - 07/04/2024 11:43 AM)* ? Value Reference Range ?CHLAMYDIA, Amplified NEGATIVE NE GATIVE - * ?GONORRHEA, Amplified NEGATIVE NE GATIVE - * This lab was reviewed by TIERRA SINGH on 07/15/2024 at 11:16 AM EDT Notes: For first pap today. Rescreening in 3years if normal??3.?Encounter for screening for infections with a predominantly sexual mode of transmission?LAB: APTIMA COMBO 2 CT/NG, Cervix (Collection Date & Time - 07/04/2024 11:43 AM)* ? Value Reference Range ?CHLAMYDIA, Amplified NEGATIVE NE GATIVE - * ?GONORRHEA, Amplified NEGATIVE NE GATIVE - * This lab was reviewed by TIERRA SINGH on 07/15/2024 at 11:16 AM EDT Notes: Discussed STI risks, screenings that are available through [facility] and safe sex. Clt aware of lab processing times and how to view results on portal and how positive results will be communicated ??4.?Visit for initial script of pills? Start Levonorgestrel Tablet, 1.5 MG, as directed, Orally, May take upto 5 days after sex as needed,1 days, 1 Tablet, Refills 5;?Start [place] FE 1/20 Tablet, 1- 20 MG-MCG, 1 tablet, Orally, Once a day, 28 days, 1 Pack, Refills 3.?? Notes: Discussed control options. No CI's to CHCs. Reviewed benefits, risks and ACHES. Clt tonotify if migraines worsened by OCP's. May quick start with BUM x 7 days Medication dispensed from in house stock: lot number [id number], exp 2024 x 3 packs. 1 refillleft ?? * Procedures:?IUD Removal:?Consent?Risks and benefits discussed. All questions answered. Informed consent signed.?Procedure?Patient was placed in the dorsal lithotomy position. A speculum was inserted into the vagina. IUD strings grasped with ring forceps and IUD removed easily. The patient tolerated the procedure well..? * Procedure Codes:?07300 IUD R [id number] Pap [id number] Microgestin/Gildess, Units: 3.00 77852 Chlamydia - Amplified [id number] Gonorrhea - Amplified [id number] Emergency Contraception (DPH), Modifiers: FP * Follow Up:?3 Months (Reason: pill check) * Billing Information: * Visit Code:? 40266 Existing - Medium Complexity (IN USE). * Procedure Codes:? 95149 IUD Removal. 91435 Pap Smear. S4993 Microgestin/Gildess. Units: 3.00. 70092 Chlamydia - Amplified probe. 29363 Gonorrhea - Amplified probe. J3490 Emergency Contraception (DPH). Modifiers: FP * Sign off status: Completed true * Provider:MARI YUNG Date:?07/04/2024 Generated for Karine newberry/Maddison/Loli on:?01/23/2025 11:43 AM EDT History and Physical Notes * HPI (History of Present Illness) Category Sub-Category Detail Notes Category Not es Visit Narrative Current form of control: Javan Presenting Symptoms: cramping, painful I C, breakthrough bleeding Other Notes for the Clinician: Clt state s she experiences pain during penetrative IC w/ the IUD as well as random cramping not related to menses. Client did not take pain medication for removal, offered clt medication and she declined LMP: unsure, occasional s potting Last date of UPI: 07/02/2024 Examination Category Sub-Category Detail Notes Category Not es General Examination GENERAL APPEARANCE: in no acute di stress NEUROLOGIC: alert and oriented Gynecological CERVIX: normal appearanc e, IUD strings seen about 3cm long, Pap collected VAGINA: healthy pink mucosa without any lesions EXTERNAL GENITALIA: normal URETHRA: normal URETHRAL MEATUS: normal VAGINA VAULT: normal ANUS/PERINEUM: normal
--- OUTSIDE RECORDS SUMMARY | 2025-01-23 11:43 | XMS_ITS | Encounter Summary ---
Author Organization [employer] Address [address] [place] [address] Care Team Providers Care Gravedigger Name Role Phone Tang Rich DMD Unavailable [phone] Reason for Visit * Reason Comments New patient Encounter Details Date Type Department Care Team (Latest Contact Info) Description 01/23/2025 10:00 AM EDT Office Visit [facility] [address], [place] [phone] Alexandria Shirley MD [address] [place], [place] [phone] Other migraine without status migrainosus, not intractable (Primary Dx); Chronic nonintractable headache, unspecified headache type; Migraine with aura and without status migrainosus, not intractable Social History Tobacco Use Types Packs/Day Years Used Date Smoking Tobacco: Never Smokeless Tobacco: Never Tobacco Cessation:Counseling Given: Not Answered Alcohol Use Standard Drinks/Week Comments Not Currently 0 (1 standard drink = 0.6 oz pur e alcohol) Socially 1-2x/y Housing Stability Answer Date Recorded What is your housing situation today? I have erumtommy will 01/14/[address] you [...] AM EDT documented as of this encounter Last Filed Vital Signs Vital Sign Reading Time Taken Comments Blood Pressure 107/76 01/23/2025 9:55 AM EDT Pulse 74 01/23/2025 9:55 AM EDT Temperature 37.1 ??C (98.7 ??F) 01/23/2025 9:55 AM ED T Respiratory Rate - - Oxygen Saturation 100% 01/23/2025 9:55 AM EDT Inhaled Oxygen Concentration - - Weight 60 kg (132 lb 4 oz) 01/23/2025 9:55 AM ED T Height 170.2 cm (5' 7 ) 01/23/2025 9:55 AM EDT Body Mass Index 20.71 01/23/2025 9:55 AM EDT documented in this encounter Miscellaneous Notes * Assessment & Plan Note - Alexandria Shirley MD - 01/23/2025 10:28 AM EDT Associated Problem(s): Migraine with aura Resolved * Assessment & Plan Note - Alexandria Shirley MD - 01/23/2025 10:28 AM EDT Associated Problem(s): Chronic nonintractable headache History of migraines, they seem to be quiescent at this time. Advised to quit vaping Advised against smoking, using alcohol or any other recreational substances Reconsult as needed Order labs documented in this encounter Plan of Treatment Upcoming Encounters Date Type Department Care Team (Late st Contact Info) Description 01/26/2025 2:30 PM EDT Office Visit [facility] [address] [place] [address] Paola Espino DMD 01/28/2025 3:00 PM EDT Office Visit [facility] [address] [place], [place] [phone] Walt Nelly 03/09/2025 11:30 AM EDT Telemedicine [facility] [address], [place] [phone] Alexandria Shirley MD [address] [place], [place] [phone] Scheduled Orders Name Type Priority Associated Diagnoses Orde r Schedule Comprehensive Metabolic Panel Lab Routine Other migraine without status migrainosus, not intractable Expected: 01/23/2025 (Approximate), Expires: 01/23/2026 Lipid Panel with Reflex to Direct LDL Lab Routine Other migraine without status migrainosus, not intractable Expected: 01/23/2025 (Approximate), Expires: 01/23/2026 CBC auto differential Lab Routine Other migraine without status migrainosus, not intractable Expected: 01/23/2025 (Approximate), Expires: 01/23/2026 TSH with Reflex to Free T4 Lab Routine Other migraine without status migrainosus, not intractable Expected: 01/23/2025 (Approximate), Expires: 01/23/2026 documented as of this encounter Visit Diagnoses Diagnosis Other migraine without status migrainosus, not intractable- Primary Chronic nonintractable headache, unspecified headache type Migraine with aura and without status migrainosus, not intractable documented in this encounter Care Teams Gravedigger Relationship Specialty Start Date End Date Tang Rich DMD [address] [place] [address] Dentist 09/05/24 documented as of this encounter
--- OUTSIDE RECORDS SUMMARY | 2025-01-23 11:43 | XMS_ITS | Encounter Summary ---
Author Organization [facility] Address [address] [place] [address] Phone Care Team Providers Care Access Registrar Name Role Phone Neelam Guaman MD Primary Care Provider [phone] Encounter Details Date Type Department Care Team (Late st Contact Info) Description 05/17/2017 Conversion Encounter [facility] [place] [address] [place] [address] Social History Tobacco Use Types Packs/Day Years Used Date Smoking Tobacco: Never Comments:Never smoker Comments Unknown Sex and Gender Information Value Date Recorded Sex Assigned at Not on file Legal Sex Female 5:23 PM EDT Gender Identity Not on file Sexual Orientation Straight 02/16/2021 12 :51 PM EDT documented as of this encounter Plan of Treatment Not on file documented as of this encounter Visit Diagnoses Not on filedocumented in this encounter Care Teams Access Registrar Relationship Specialty Start Date End Date Neelam Guaman MD [address] [place] [address] PCP - General 05/11/17 04/08/24 documented as of this encounter
--- OUTSIDE RECORDS SUMMARY | 2025-01-23 11:43 | XMS_ITS | Clinical Summary ---
Author Organization [facility] Address [address] [place] [phone] Phone Care Team Providers Care Field Liability Generalist Name Role Phone Unavailable Primary Care Provider Unavailabl e Allergies No known active allergies Medications ibuprofen (Ibuprofen 100 Timothy Strength) 100 MG chewable tabletIndications: Chronic nonintractable headache, unspecified headache type Chew 4 tablets (400 mg total) every 6 (six) hours as needed for headaches. 60 tablet 02/17/20 Active Additional Information Patient not taking.Reported on 01/19/2023 Active Problems Problem Noted Date Diagnosed Date Cannabis dependence, daily use 02/16/2021 Chronic nonintractable headache 02/16/2021 Assessment & Plan (03/03/2021 5:52 PM EDT): Headaches have improved. No signs of serious pathology at this time. Kory knows that I recommend that she stop using marijuana. Pleased to hear about her new job since she is not in school. I encouraged her to come back at any time if symptoms worsen or she has other concerns. Non-intractable vomiting 02/16/2021 Immunizations Immunization Administration Dates Next Due COVID-19 Moderna, monovalent , 12+ years 06/29/2021,05/27/2021 DTaP 5 12/30/2007, 5,2003,08/07,2003 HPV Vaccine 9 Valent 09/14/2015 HPV, Quadrivalent 07/06/2014 Hep A, ped/adol 07/06/2014,03/31/2011 Hep B, ped/adol 2003,2003,2003 Hib (HbOC) 06/27/2004 Hib (PRP-T) 2003,2003,2003 IPV 12/30/2007, 4,2003,05/29 Influenza Split 06/06/2012 Influenza, injectable, MDCK, preservative free, quadrivalent 12/19/2016 Influenza, injectable, quadrivalent 09/14/2015 Influenza, injectable, quadr ivalent, preservative free 07/29/2021 Influenza, injectable, trivalent 10/27/2009,08/02 Influenza, intranasal, quadrivalent 07/06/2014 MMR 04/08/2004 MMRV 12/30/2007 Meningococcal Conj (Menactra) MCV4P 02/16/2021,1 Pneumococcal Conjugate 06/27/2004,2003,2003,05/29 Tdap 07/06/2014 Varicella 04/08/2004 Family History Relation Name Status Comments Brother Alive Brother: Alive and well Father Alive Father: Alive a nd well Maternal Grandmother Materna l grandmother: , HIV Mother Alive Mother: Alive a nd well Other , No family his tory of Heart disease, No family history of Sudden , No family history of Stroke, Paternal Grandfather Paterna l grandfather: Heart disease, Sister Alive Sister: Alive a nd well Social History Tobacco Use Types Packs/Day Years Used Date Smoking Tobacco: Never Smokeless Tobacco: Never Comments:Never smoker Alcohol Use Standard Drinks/Week Comments No 0 (1 standard drink = 0.6 oz pur e alcohol) Hunger/Food Answer Date Recorded In the last 12 months, did y ou or your family ever eat less than you felt you should because there wasn't enough money for food? No 02/16/2021 Stable Housing Answer Date Recorded Are you worried that in the next 2 months you may not have stable housing? No 02/16/2021 Transportation Concerns Answer Date Rec orded In the last 12 months, have you or your family ever had to go without healthcare because you didn't have a way to get there? No 02/16/2021 Hazards in Home Answer Date Recorded Think about the place you li ve. Do you have problems with any of the following? Pests (mice or roaches), mold, no/not working smoke detectors, water leaks, no window guards. No 2020 Financing Utilities Answer Date Recorde d In the last 12 months, has t he electric, gas, oil, or water company threatened to shut off your services in your home? No 02/16/2021 Safety at Home Answer Date Recorded Are you or your family worried about feeling saf e in your home? No 02/16/2021 Outside Support Answer Date Recorded Do you feel that you need mo re support from other people or programs to help you care for yourself or your family? No 02/16/2021 Understanding Health Concerns Answer Da te Recorded Do you need help understandi ng your or your child's healthcare needs (diagnosis, medications, plan, etc.)? No 02/16/2021 Financing Health Concerns Answer Date R ecorded In the last 12 months, was t here a time when your child needed to see a doctor or get medications or supplies but could not because of cost? No 02/16/2021 Missing School or Work Answer Date Karl rded Did you or your child miss s chool or work because of a health problem that could have been avoided? No 02/16/2021 Comments No Sex and Gender Information Value Date Recorded Sex Assigned at Not on file Legal Sex Female 5:23 PM EDT Gender Identity Not on file Sexual Orientation Straight 02/16/2021 12 :51 PM EDT Last Filed Vital Signs Vital Sign Reading Time Taken Comments Blood Pressure 105/67 01/19/2023 3:49 PM EDT Pulse 71 01/19/2023 3:49 PM EDT Temperature 37.3 ??C (99.2 ??F) 01/19/2023 3:49 PM ED T Respiratory Rate - - Oxygen Saturation - - Inhaled Oxygen Concentration - - Weight 65.3 kg (144 lb) 01/19/2023 3:49 PM EDT Height 167.6 cm (5' 6 ) 02/16/2021 9:13 AM EDT Body Mass Index - - Plan of Treatment Health Maintenance Due Date Last Done Comments Men B Vaccine (1 of 2 - Standard) 2019 Influenza Vaccines (#1) 2024 07/29/20 21, 12/19/2016, 09/14/2015, Additional history exists COVID-19 Vaccine (3 - 2023-2 5 season) 2024 06/29/2021, 05/27/2021 DTaP,Tdap,and Td Vaccines (7 - Td or Tdap) 07/06/2024 07/06/2014, 12/30/2007, 10/24/2004, Additional history exists Hepatitis B Vaccines Completed 2003, 2003, 2003 HIB Vaccines Completed 06/27/2004, 06/2004, 2003, Additional history exists Pneumococcal Vaccine Completed 06/27/2004, 2003, 2003, Additional history exists IPV Vaccines Completed 12/30/2007, 11/29, 2003, Additional history exists MMR Vaccines Completed 12/30/2007, 04/08/2004 Varicella Vaccines Completed 12/30/2007, 04/08/2004 Hepatitis A Vaccines Completed 07/06/2014, 03/31/20 11 HPV Vaccines Completed 09/14/2015, 07/06/2014 Meningococcal Vaccine Completed 02/16/2021, 014 Procedures * Due to [place] DoubleVerify law, this organization might not be sharing sensitive test results. Procedure Name Priority Date/Time Associated Diagnosis Comments SURESWAB (ADV) VAGINITIS PLUS, TMA Routine 01/19/2023 4:29 PM EDT Vaginal discharge from Last 3 Months or Most Recently Relevant to Health Maintenance Results * Due to [place] DoubleVerify law, this organization might not be sharing sensitive test results. * (ABNORMAL) SureSwab Advanced (TMA)- BV, CT/NG, Kodi, Trich (01/19/2023 4:29 PM EDT) BACTERIAL VAGINOSIS TEST POSITIVE(A) (NEG) [facility] Comment: Bacterial vaginosis targets by PCR detected in this patient's sample. ?? Note: This assay uses real time career coach-mediated amplification (TMA) for detection and quantification of ribosomal RNA from bacteria associated with bacterial vaginosis (BV), including Lactobacillus (L. gasseri, L. crispatus, and L. jensenii), Gardnerella vaginalis, and Atopobium vaginae. Kodi Species NEGATIVE (NEG) [facility] Comment: No kodi species group (C. albicans, C. tropicalis, C. parapsilosis, C. dubliniensis) targets by PCR detected in this patient's sample. Kodi Glabrata, CARROLL NEGATIVE (NEG) [facility] Comment:No Kodi glabrata targets by PCR detected in this patient's sample. SureSwab, T.vaginalis RNA NEGATIVE (NEG) [facility] Comment: No Trichomonas vaginalis targets by PCR detected in this patient's sample. ?? Note: This assay uses real time career coach-mediated amplification (TMA) for detection and quantification of ribosomal RNA from organisms associated with Kodi species group (C. albicans, C. tropicalis, C. parapsilosis, C. dubliniensis), Kodi glabrata, and Trichomonas vaginalis. Chlamydia Trachomatis, Amplified NEGATIVE (NEG) [facility] Comment: No Chlamydia Trachomatis RNA detected in this patient's sample ? (REFERENCE RANGE/NORMAL VALUE: NOT DETECTED) ? Note: This test uses career coach- mediated amplification method to detect rRNA from C. Trachomatis N.GONORRHOEAE AMP PROBE NEGATIVE (NEG) [facility] Comment: No Neisseria Gonorrhoeae RNA detected in this patient's sample ? (REFERENCE RANGE/NORMAL VALUE: NOT DETECTED) ? NOTE: This test uses career coach-mediated amplification method to detect rRNA from N.Gonorrhoeae. A negative result does not preclude infection. In the case of a negative urine result, testing of an endocervical(female) or urethral (male) specimen is recommended if there is high clinical suspicion of infection. Due to very high sensitivity of Nucleic Acid Amplification Test, false positive results may occur. Therefore, specimen handling is extremely important. In patients in whom the disease is unlikely, additional sample for testing should be considered after an initial positive result. The performance characteristics of this test have not been evaluated in children. The Aptima Combo2 assay is not intended for the evaluation of suspected sexual abuse or for other medico-legal indications. The ordering provider should assess if the patient had consensual sex without risk of sexual abuse. Consult the [facility] if needed. Contact phone number . Therapeutic failure or success cannot be determined with the Aptima Combo2 assay since nucleic acid may persist following appropriate antimicrobial therapy. The Centers for Disease Control and Prevention (CDC) recommends confirmatory retesting using culture or a different nucleic acid amplification test when positive results occur, if indicated. Testing performed or reported by [facility], a Service of [facility], [facility] [place] [address] Tristin Mccabe MD, [employer] [facility]# [id number] Swab (Vagina) 01/19/2023 4:2 9 PM EDT 01/20/2023 2:34 AM EDT us Mavis Alexis MD LAB MICROBIOLOGY - GENERAL ORDER ERNESTINA Final Result [facility] from Last 3 Months or Most Recently Relevant to Health Maintenance Insurance [facility] P[facility]
--- OUTSIDE RECORDS SUMMARY | 2025-01-23 11:43 | XMS_ITS | Clinical Summary ---
Author Organization [employer] Address [address] [place] [address] Care Team Providers Care [place] Name Role Phone Tang Rich DMD Unavailable [phone] Allergies No known active allergies Medications Sodium Fluoride 1.1 % creamIndication s:Dental caries Rhodhiss teeth for 2 minutes, morning and night. Spit, do not rinse. Do not eat or drink anything for 30 minutes following use. 112 g 3 Active Additional Information Patient not taking.Reported on 12/11/2024 Active Problems Problem Noted Date Diagnosed Date Migraine with aura 07/03/2024 Assessment & Plan (01/23/2025 10:28 AM EDT): Resolved Chronic nonintractable headache 02/16/2021 Overview (07/03/2024): Last Assessment & Plan: Headaches have improved. No signs of serious pathology at this time. Kory knows that I recommend that she stop using marijuana. Pleased to hear about her new job since she is not in school. I encouraged her to come back at any time if symptoms worsen or she has other concerns. Assessment & Plan (01/23/2025 10:28 AM EDT): History of migraines, they seem to be quiescent at this time. Advised to quit vaping Advised against smoking, using alcohol or any other recreational substances Reconsult as needed Order labs Non-intractable vomiting 02/16/2021 Resolved Problems Problem Noted Date Diagnosed Date Resolved Date Cannabis dependence, daily use 02/16/2021 01/23/2025 Encounters Date Type Department Care Team Description 01/23/2025 10:00 AM EDT Office Visit [address] [address] Alexandria Shirley MD Other migraine without status migrainosus, not intractable (Primary Dx); Chronic nonintractable headache, unspecified headache type; Migraine with aura and without status migrainosus, not intractable 01/23/2025 Travel 01/20/[address] [address] Luz Adame [place] Chart prep 01/14/2025 Patient Outreach [address] [address] Alexandria Shirley MD Pre-visit Planning (SDOH screening negative and tobacco screening positive) 12/29/2024 2:15 PM EDT Office Visit [facility] [address] [place] [address] Jimmie Alejandro DDS Dental caries (Primary Dx) 12/11/2024 11:30 AM EDT Office Visit [facility] [address] [place] [address] Paola Espino DMD 12/11/2024 Telephone [facility] [address] [place] [address] Tang Rich DMD unable to post insurance PAR side 12/09/2024 2:30 PM EDT Office Visit [facility] [address] [place] [phone] Yuriy Barrientos DDS 12/09/2024 Telephone [facility] [address] [place] [phone] Yuriy Barrientos DDS emergency no insurance 11/19/2024 Telephone [facility] [address] [place] [address] Nelly Godoy cancelled appt 11/14/2024 Telephone [facility] [address] [place] [address] Tang Rich, MARIE 11/11/2024 Telephone [facility] [address] [place] [address] Kandru, Jimmie, DDS consultation appt from Last 3 Months Family History Medical History Relation Name Comments No Known Problems Brother Heart disease Father Polycystic ovary syndrome Sister Relation Name Status Comments Brother Father Sister Social History Tobacco Use Types Packs/Day Years [...] not to disclose 2023 8:09 AM EDT Last Filed Vital Signs Vital Sign [...] Mass Index 20.71 01/23/2025 9:55 AM EDT Plan of Treatment Upcoming Encounters Date Type Department Care Team (Late st Contact Info) Description 01/26/2025 2:30 PM EDT Office Visit [facility] [address] [place] [address] Paola Espino DMD 01/28/2025 3:00 PM EDT Office Visit [facility] [address] [place] [address] Nelly Godoy 03/09/2025 11:30 AM EDT Telemedicine [facility] [address] [place], [place] [phone] Alexandria Shirley MD [address] [place] [address] Health Maintenance Due Date Last Done Comments Chlamydia and Gonorrhea Screening 2003 Dental Prophylaxis 2003 Depression Screening 2003 HIV Screening 2003 Alcohol/Substance Use Screening 2015 Hepatitis C Screening 2021 Pap Smear 2024 COVID-19 Vaccine ( season) 2024 06/29/2021, 05/27/2021 Influenza Vaccine (#1) 2024 , 12/19/2016, 09/14/2015, Additional history exists DTaP/Tdap/Td Vaccines (7 - Td or Tdap) 07/06/2024 07/06/2014, 12/30/2007, 10/24/2004, Additional history exists Dental Oral Exam 02/23/2025 08/25/2024 Dental X-Ray: Bitewings 12/10/2025 12/10/19, 08/25/2024, 07/03/2024 SDOH Screening 01/14/2026 01/14/2025 Family Planning (PISQ) 01/23/2026 01/23/2025 Tobacco Screening 01/23/2026 01/23/2025 Dental X-Ray: Full Mouth 08/26/2027 08/25/2024 Zoster Vaccines (1 of 2) 2053 RSV Patients and Patients Aged 60 years or older (1 - 1-dose 75+ series) 2078 Hepatitis B Vaccines Completed 2003, 2003, 2003 HIB Vaccines Completed 06/27/2004, 06/2004, 2003, Additional history exists Pneumococcal Vaccine: Pediatrics (0 to 5 Years) and At-Risk Patients (6 to 49) Years) Aged Out 06/27/2004, 2003, 2003, Additional history exists No longer eligible based on patient's age to complete this topic IPV Vaccines Completed 12/30/2007, 11/29, 2003, Additional history exists Hepatitis A Vaccines Completed 07/06/2014, 03/31/20 11 HPV Vaccines Completed 09/14/2015, 07/06/2014 Meningococcal Vaccine Completed 02/16/2021, 014 RSV under 20 months Aged Out No longe r eligible based on patient's age to complete this topic Rotavirus Vaccines Aged Out No longer eligible based on patient's age to complete this topic Procedures Procedure Name Priority Date/Time Associated Diagnosis Comments LIMITED ORAL EVALUATION - PROBLEM FOCUSED Routine 12/29/2024 2:15 PM EDT CASE PRESENTATION, DETAILED AND EXTENSIVE TREATMENT PLANNING Routine 12/11/2024 11:30 AM EDT LIMITED ORAL EVALUATION - PROBLEM FOCUSED Routine 12/11/2024 11:30 AM EDT 19 RE-CEMENT OR RE-RODRIGES CROWN Routine 12/09/2024 2:30 PM EDT CASE PRESENTATION, DETAILED AND EXTENSIVE TREATMENT PLANNING Routine 12/09/2024 2:30 PM EDT BITEWING - SINGLE RADIOGRAPHIC IMAGE Routine 12/09/2024 2:30 PM EDT INTRAORAL - PERIAPICAL FIRST RADIOGRAPHIC IMAGE Routine 12/09/2024 2:30 PM EDT PALLIATIVE (EMERGENCY) TREATMENT OF DENTAL PAIN - MINOR PROCEDURE Routine 12/09/2024 2:30 PM EDT INTRAORAL - COMPLETE SERIES OF RADIOGRAPHIC IMAGES Routine 08/25/2024 1:00 PM EST Dental caries COMPREHENSIVE ORAL EVALUATION - NEW OR ESTABLISHED PATIENT Routine 08/25/2024 1:00 PM EST Dental caries from Last 3 Months or Most Recently Relevant to Health Maintenance Insurance [facility] C3 DENTAL-[facility] MEDICAID STAND ADULT Care Teams [place] Relationship Specialty Start Date End Date Tang Rich DMD [address] [place] [phone] Dentist 09/05/24
--- OUTSIDE RECORDS SUMMARY | 2025-01-23 11:43 | XMS_ITS | Encounter Summary ---
Author Organization [employer] Address [address] [facility] [address] [place] [address] Care Team Providers Care Rouge Mixer Name Role Phone Tang Rich DMD Unavailable [phone] Reason for Visit * Reason Onset Date Comments rs cancelled appt 11/19/2024 Encounter Details Date Type Department Care Team (Late st Contact Info) Description 11/19/2024 Telephone [facility] [address] [place] [address] Nelly Godoy rs cancelled appt Social History Tobacco Use Types Packs/Day Years [...] * Telephone Encounter - Jeanine Medrano - 11/19/2024 8:12 AM EST Patient called in to reschedule cancelled appt. Please reach out to patient to reschedule DR documented in this encounter Plan of Treatment Upcoming Encounters Date Type Department Care Team (Late st Contact Info) Description 01/26/2025 2:30 PM EDT Office Visit [facility] [address] [place] [address] Paola Espino DMD 01/28/2025 3:00 PM EDT Office Visit [facility] [address] [place] [address] Nelly Godoy 03/09/2025 11:30 AM EDT Telemedicine [facility] [address] [place] [address] Alexandria Shirley MD [address] [place], [place] [phone] documented as of this encounter Visit Diagnoses Not on filedocumented in this encounter Care Teams Rouge Mixer Relationship Specialty Start Date End Date Tang Rich DMD [address] [place] [phone] Dentist 09/05/24 documented as of this encounter
--- OUTSIDE RECORDS SUMMARY | 2025-01-23 11:44 | XMS_ITS ---
Author Organization [facility] Address [address] [place] [phone] Care Team Providers Care Solar Energy Systems Engineer Name Role Phone NALLELY YUNG Unavailable [phone] REASON FOR VISIT Pill check Social History Sex Assigned At : Social History Observation Description Sex Assigned At Female Encounters Encounter Location Date Provider Diagnosis [address] [phone] 11/2024 NALLELY YUNG Plan Of Treatment No Information Progress Notes * Kory MUHAMMADDOB:[birth year] (19 yo F)Acc No.[id number]:10/03/2024 Progress Notes Patient:?SABINALatoshamckayla Provider:MARI YUNG :2005???Age:19 Y???Sex:Female D ate:10/03/2024 Address:[address] [place] [id number] Subjective: * Chief Complaints: * ???1. Pill check. * Medical History:? Objective: * Vitals:? Assessment: Plan: * Treatment: * Billing Information: * Visit Code:? * Procedure Codes:? * Electronic signature of YOUSIF YUNG CNM on 01/23/2025 at 11:43 AM EDT Sign off status: Pending * Provider:MARI YUNG Date:?10/03/2024 Generated for Karine newberry/Maddison/eTransmitting on:?01/23/2025 11:43 AM EDT
[2025-01-23 13:19] LABS: MANUAL DIFF FLAG NO
[2025-01-23 13:35] LABS: Basophils Percent Auto 0.7 % (0-2); Eosinophils Absolute Auto 0.1 X10*3/uL (0.0-0.4); Eosinophils Percent Auto 1.8 % (0-4); Hematocrit 40.7 % (37.0-47.0); Hemoglobin 13.8 g/dl (12.0-16.0); Imm Gran Abs Auto 0.02 X10*3/uL (0.00-0.03); Imm Gran Pct Auto 0.4 % (0.0-0.4); Lymphocytes Percent Auto 35.6 % (20-40); Mean Corpuscular HGB Conc 33.9 g/dl (31.0-35.0); Mean Corpuscular Hemoglobin 29.9 pg (27.0-33.0); Mean Corpuscular Volume 88.3 fL (80.0-98.0); Mean Platelet Volume 9.9 fL (9.4-12.3); Monocytes Absolute Auto 0.4 X10*3/uL (0.1-1.2); Monocytes Percent Auto 7.4 % (2-11); Neutrophils Percent Auto 54.1 % (45-73); Platelet Count 293 X10*3/uL (160-400); Red Blood Count 4.61 X10*6/uL (4.20-5.50); White Blood Count 5.6 X10*3/uL (4.8-10.8)
[2025-01-23 13:58] LABS: Alanine Aminotransferase 13 U/L (0-31); Albumin Level 4.1 g/dL (3.5-5.0); Alkaline Phosphatase 77 U/L (39-117); Anion Gap 11 (12-20); Aspartate Amino Transferase 25 U/L (5-31); Bilirubin Total 0.6 mg/dL (0.0-1.0); Blood Urea Nitrogen 9 mg/dL (9-16); Calcium 9.1 mg/dL (8.4-10.2); Carbon Dioxide 25 mmol/L (22-29); Chloride 106 mmol/L (96-108); Cholesterol 130 mg/dL (<200); Estimated Glomerular Filt Rate > 60; Glucose Random 73 mg/dL (60-115); HDL Cholesterol 59 mg/dL (>40); LDL Cholesterol Calculated 61 mg/dL (<100); Potassium 3.9 mmol/L (3.3-5.1); Sodium 138 mmol/L (135-145); Total Protein 6.9 g/dL (6.5-8.0); Triglycerides 53 mg/dL (<150)
[2025-01-23 14:03] LABS: Reflex LDLD? No
[2025-01-23 14:16] LABS: TSH reflex Free T4 0.89 uIU/mL (0.32-4.0)
== END 2025-01-23 10:54 | disposition home or self-care (01) ==
LOC: HO.HHCL 10:53
PROVIDERS: Visit Provider Internal Medicine
DX: G43.809 Other migraine, not intractable, without status migrainosus (principal)
CPT/HCPCS: 36415; 80053; 80061; 84443; 85025

== ENCOUNTER 2025-02-19 22:28 | Emergency (ER) | payer MEDICAID, SELFPAY ==
--- NOTE | 2025-02-19 | ECG_ITS ---
Test Reason : CP Blood Pressure : */* mmHG Vent. Rate : 61 BPM Atrial Rate : 61 BPM P-R Int : 136 ms QRS Dur : 84 ms QT Int : 396 ms P-R-T Axes : 65 72 62 degrees QTcB Int : 398 ms Normal sinus rhythm Normal ECG No previous ECGs available Referred By: Generic ED Physician Electronically Signed By: Robert Chang
--- NOTE | ~2025-02-19 | XR_ITS ---
CLINICAL HISTORY: cp 1 view chest x-ray Comparison: None Findings: The lungs are clear. Heart size is normal. No acute fracture. IMPRESSION: 1. No acute findings. This document has been electronically signed by: Long Jules MD on 02/20/2025 00:16:41
[2025-02-19 22:36] VITALS: BP 122/93; PULSE 71; RESP 14; TEMP 36.6; O2SAT 100; BMI 21.1
[2025-02-19 22:51] LABS: MANUAL DIFF FLAG NO
[2025-02-19 22:52] LABS: Basophils Percent Auto 0.6 % (0-2); Eosinophils Absolute Auto 0.2 X10*3/uL (0.0-0.4); Eosinophils Percent Auto 2.1 % (0-4); Hematocrit 38.8 % (37.0-47.0); Hemoglobin 13.4 g/dl (12.0-16.0); Imm Gran Abs Auto 0.01 X10*3/uL (0.00-0.03); Imm Gran Pct Auto 0.1 % (0.0-0.4); Lymphocytes Absolute Auto 3.3 X10*3/uL (1.2-4.9); Lymphocytes Percent Auto 46.1 % (20-40); Mean Corpuscular HGB Conc 34.5 g/dl (31.0-35.0); Mean Corpuscular Hemoglobin 29.8 pg (27.0-33.0); Mean Corpuscular Volume 86.4 fL (80.0-98.0); Mean Platelet Volume 9.2 fL (9.4-12.3); Monocytes Absolute Auto 0.6 X10*3/uL (0.1-1.2); Monocytes Percent Auto 7.8 % (2-11); Neutrophils Absolute Auto 3.1 x10*3/uL (2.0-8.3); Neutrophils Percent Auto 43.3 % (45-73); Platelet Count 278 X10*3/uL (160-400); Red Blood Count 4.49 X10*6/uL (4.20-5.50); Red Cell Distribution Width 11.9 % (11.0-16.0); White Blood Count 7.1 X10*3/uL (4.8-10.8)
[2025-02-19 23:10] LABS: Alanine Aminotransferase 18 U/L (0-31); Albumin Level 4.4 g/dL (3.5-5.0); Alkaline Phosphatase 92 U/L (39-117); Anion Gap 12 (12-20); Aspartate Amino Transferase 24 U/L (5-31); Bilirubin Total 0.4 mg/dL (0.0-1.0); Blood Urea Nitrogen 12 mg/dL (9-16); Calcium 9.2 mg/dL (8.4-10.2); Carbon Dioxide 27 mmol/L (22-29); Chloride 106 mmol/L (96-108); Creatinine Clr Calc Pharmacy 114.2; Estimated Glomerular Filt Rate > 60; Glucose Random 72 mg/dL (60-115); Potassium 3.8 mmol/L (3.3-5.1); Sodium 141 mmol/L (135-145); Total Protein 7.2 g/dL (6.5-8.0)
[2025-02-19 23:18] LABS: Troponin-I High Sensitivity < 2.7 ng/L (<3.5-17.0)
[2025-02-19] MEDS: Meclizine HCl 25 MG TABLET 50 MG PO (23:19)
[2025-02-19 23:29] LABS: HCG Quantitative < 2 mIU/mL
--- NOTE | 2025-02-20 00:13 | ED_ITS ---
HPI - Chest Pain General Chief Complaint: Chest Pain Stated Complaint: cp dizziness Time Seen by Provider: 02/19/25 22:49 Source: patient Limitations: no limitations History of Present Illness ED Provider: Tami Ledezma PA-C HPI narrative: 19-year-old female with a history of anxiety presents with chest pain x3 days. Patient states she is having upper central chest tightness at times, her symptoms are intermittent, can occur spontaneously, she is noticing we will see her symptoms at night when she lies down to sleep. Associated dizziness that has also worse with lying flat, better with standing. Patient denies seasonal allergies, nasal congestion, recent cough cold symptoms or fever. Related Data Previous Rx's ?Medication ?Instructions ?Recorded levofloxacin 500 mg tablet 500 mg PO DAILY #9 tabs 08/02/22 ondansetron 4 mg disintegrating 4 mg PO Q8H PRN nausea and 08/02/22 tablet vomiting #20 tabs nitrofurantoin 100 mg PO BID 7 days #14 caps 08/06/22 monohydrate/macrocrystals 100 mg capsule (Macrobid) cefuroxime axetil 250 mg tablet 250 mg PO BID 7 days #14 tabs 02/22/24 amoxicillin 250 mg/5 mL oral 500 mg (10 mL) PO BID 10 days #200 10/11/24 suspension mL Allergies Allergy/AdvReac Type Severity Reaction Status Date / Time No Known Allergies Allergy Verified 02/19/25 22:39 [No Known Allergies*] Review of Systems 2 Review of Systems: Yes all other systems are reviewed and are negative Constitutional: Constitutional: Denies fatigue, Denies fever(s) and Denies headache(s) ENT: Reports dizziness, Denies headache(s), Denies nasal congestion and Reports disequilibrium Cardiovascular: Cardiovascular: Reports chest pain and Denies dyspnea Respiratory: Respiratory: Denies cough and Denies dyspnea Gastrointestinal: Gastrointestinal: Denies abdominal pain, Denies nausea and Denies vomiting Neurologic: Reports dizziness, Denies headache(s) and Reports disequilibrium Endocrine: Endocrine: Denies fatigue PMFSH Past Medical History Attestation statement: The following information was validated with the patient. Medical History No pertinent past medical history Social History Social History (System 01/29/25 @ 09:34 by Anitha Woods) Alcohol intake: never Patient Tobacco Use Status: Never used Tobacco Smoked in Last 30 Days: No Use of substances other than those prescribed or required for medical reasons: No Substance Use Type: Marijuana Advance Directives: No Advance Directives Information Provided: No Do you have a plan to hurt others: No Plan Physical Exam 2 Vital Signs: Vital Signs: Last Vital Signs Temp 97.9 F 02/19/25 22:36 Pulse 71 02/19/25 22:36 Resp 14 02/19/25 22:36 BP 122/93 H 02/19/25 22:36 Pulse Ox 100 02/19/25 22:36 O2 Del Method Room Air 02/19/25 22:36 BMI result Body Mass Index 21.1 Const: Other: Alert well-appearing Orientation/consciousness: patient oriented x3 HEENT: Other: Bilateral TMs are dull, without overlying erythema or exudate, no tragal tenderness no erythema of external ear canals Eyes: Other: No nystagmus Resp: Effort & Inspection: normal respiratory effort Cardio: Other: Normal peripheral perfusion Skin: Other: Warm dry no rash Neuro: General: patient oriented x3, gait normal, no focal motor deficits and CN's II-XI intact bilaterally Psych: Other: Cooperative Medications Administered Discontinued Medications Generic Name Dose Route Start Last Admin Trade Name Freq PRN Reason Stop Dose Admin Meclizine HCl 50 mg 02/19/25 22:50 02/19/25 23:19 Meclizine Hcl 25 Mg Tablet PO 02/19/25 22:51 50 mg ONCE ONE Administration Medical Decision Making Medical Decision Making MDM Narrative: 19-year-old female with a history of anxiety presents with chest pain x3 days. Patient states she is having upper central chest tightness at times, her symptoms are intermittent, can occur spontaneously, she is noticing we will see her symptoms at night when she lies down to sleep. Associated dizziness that has also worse with lying flat, better with standing. Patient denies seasonal allergies, nasal congestion, recent cough cold symptoms or fever. Problem: Anxiety History: Per patient I have considered the following differential diagnoses: Anxiety, panic attack, ACS, vertigo, labyrinthitis Plan: In regard to the chest discomfort, this is likely related to the patient's anxiety, her presentation is atypical, she has no risk factors for coronary artery disease her heart score is 0. Screening labs including cardiac enzymes EKG and chest x-ray were obtained. In regard to the dizziness, this is also an atypical presentation, it is also intermittent, do not believe it is vertiginous, she has no nystagmus, she is having symptoms when she is still versus moving, and nausea/ vomiting are not triggered when she is dizzy. I did give a dose of meclizine, she states it made her tired. The patient complained of some right-sided ocular discharge, that resolved, I did inquire about seasonal allergies and nasal congestion, she denies, however on exam she does have evidence of serous otitis, this could be contributing to her dizziness. I have independently reviewed the following tests: Labs: No leukocytosis, not anemic, no electrolyte abnormality, troponin negative, not EKG: Normal sinus rhythm, rate of 61, no ischemic changes no ectopy QTC 390 Chest x-ray:Findings: The lungs are clear. Heart size is normal. No acute fracture. IMPRESSION: 1. No acute findings. Lab Data 02/19/25 22:46 02/19/25 22:46 Labs: Lab Results 02/19/25 Range/Units 22:46 WBC 7.1 (4.8-10.8) X10*3/uL RBC 4.49 (4.20-5.50) X10*6/uL Hgb 13.4 (12.0-16.0) g/dl Hct 38.8 (37.0-47.0) % MCV 86.4 (80.0-98.0) fL MCH 29.8 (27.0-33.0) pg MCHC 34.5 (31.0-35.0) g/dl RDW 11.9 (11.0-16.0) % Plt Count 278 (160-400) X10*3/uL MPV 9.2 L (9.4-12.3) fL Immature Gran % (Auto) 0.1 (0.0-0.4) % Neut % (Auto) 43.3 L (45-73) % Lymph % (Auto) 46.1 H (20-40) % [place] % (Auto) 7.8 (2-11) % Eos % (Auto) 2.1 (0-4) % Baso % (Auto) 0.6 (0-2) % Lymph # (Auto) 3.3 (1.2-4.9) X10*3/uL [place] # (Auto) 0.6 (0.1-1.2) X10*3/uL Eos # (Auto) 0.2 (0.0-0.4) X10*3/uL Baso # (Auto) 0.0 (0.0-0.2) X10*3/uL Abs Immat Gran (auto) 0.01 (0.00-0.03) X10*3/uL Absolute Neuts (auto) 3.1 (2.0-8.3) x10*3/uL Absolute Nucleated RBC 0.000 (0.0-0.012) X10*3/uL Nucleated RBC % (auto) 0.0 (0.0-0.2) /100WBC Sodium 141 (135-145) mmol/L Potassium 3.8 (3.3-5.1) mmol/L Chloride 106 (96-108) mmol/L Carbon Dioxide 27 (22-29) mmol/L Anion Gap 12 (12-20) BUN 12 (9-16) mg/dL Creatinine 0.75 (0.5-1.4) mg/dL Estim Creat Clear Calc 114.2 Estimated GFR > 60 Random Glucose 72 (60-115) mg/dL Calcium 9.2 (8.4-10.2) mg/dL Total Bilirubin 0.4 (0.0-1.0) mg/dL AST 24 (5-31) U/L ALT 18 (0-31) U/L Alkaline Phosphatase 92 (39-117) U/L Troponin I High Sens < 2.7 (<3.5-17.0) ng/L Total Protein 7.2 (6.5-8.0) g/dL Albumin 4.4 (3.5-5.0) g/dL Beta HCG, Quant < 2 mIU/mL Discharge Plan Discharge Clinical Impression: Atypical chest pain, Dizziness, Anxiety Patient Disposition: Home, Self-Care Instructions: Noncardiac Chest Pain (ED), Dizziness (ED), Anxiety (ED) Additional Instructions: In regard to your chest pain, all of your screening labs including a cardiac enzymes were normal, there were no concerning changes on the EKG in the chest x- ray is clear. I do feel your anxiety is the likely trigger for your discomfort. I have provided you with a list of outpatient resources for counseling and therapy. In regard to the dizziness, you were found to have some fluid within the inner ears, this can offset your balance mechanism. Use Zyrtec, daily for the next several weeks, this will help to dry up the congestion. Follow up with your primary care provider as needed. Prescriptions: No Action ondansetron 4 mg tablet,disintegrating 4 mg PO Q8H PRN (Reason: nausea and vomiting) Qty: 20 0RF levofloxacin 500 mg tablet 500 mg PO DAILY Qty: 9 0RF Rx Instructions: start on night of 08/02 nitrofurantoin monohyd/m-cryst [Macrobid] 100 mg capsule 100 mg PO BID 7 Days Qty: 14 0RF Rx Instructions: must administer with a meal/food cefuroxime axetil 250 mg tablet 250 mg PO BID 7 Days Qty: 14 0RF amoxicillin 250 mg/5 mL suspension for reconstitution 500 mg PO BID 10 Days Qty: 200 0RF Print Language: Icelandic
[2025-02-20 00:22] VITALS: BP 101/68; PULSE 60; RESP 12; TEMP 36.4; O2SAT 100
[2025-02-20 00:37] VITALS: BP 101/68; PULSE 60; RESP 12; TEMP 36.4; O2SAT 100
== END 2025-02-20 00:39 | disposition home or self-care (01) ==
PROVIDERS: Physician Assistant Medical; Emergency Provider Emergency Medicine
DX: R07.89 Other chest pain (principal); R42 Dizziness and giddiness; F41.9 Anxiety disorder, unspecified; F12.90 Cannabis use, unspecified, uncomplicated; Z79.899 Other long term (current) drug therapy
CPT/HCPCS: 36415; 71045; 80053; 84484; 84702; 85025; 93005; 99283; 99285

== ENCOUNTER → 2025-02-19 22:31 | Outpatient (BNV) | payer MEDICAID, SELFPAY | PROVIDERS: Emergency Provider Emergency Medicine; Visit Provider Internal Medicine Cardiovascular Disease | DX: R07.9 Chest pain, unspecified (principal) | CPT/HCPCS: 93010 ==

== ENCOUNTER → 2025-02-19 22:40 | Outpatient (BNV) | payer MEDICAID, SELFPAY | PROVIDERS: Emergency Provider Emergency Medicine; Visit Provider Radiology Diagnostic Radiology | DX: R07.9 Chest pain, unspecified (principal) | CPT/HCPCS: 71045 ==